=== PATIENT | female | born 1935 | race Caucasian/White ===

== ENCOUNTER 2020-07-24 05:02 | Observation (INO) ==
--- NOTE | 2020-06-27 08:57 | PAT Medication Instructions ---
Medication Instructions Date of Service June 27, 2020 Home Medications cholecalciferol (vitamin D3) [Vitamin D3] 50 mcg PO QAM glucos sul [id number] [Glucosamine Chondroitin] 1 cap PO QAM methylcellulose (laxative) [Citrucel] 500 mg PO QAM omega 3,6,9 combination no.7 1 mg PO QAM turmeric root extract 500 mg PO QAM STOP taking 2 weeks before surgery omega 3,6,9 combination no.7 1 mg PO QAM turmeric root extract 500 mg PO QAM glucos sul [id number]-C-Mn [Glucosamine Chondroitin] 1 cap PO QAM DO NOT take the morning of surgery methylcellulose (laxative) [Citrucel] 500 mg PO QAM cholecalciferol (vitamin D3) [Vitamin D3] 50 mcg PO QAM OTHERWISE NOTHING TO EAT OR DRINK AFTER MIDNIGHT Other Notes If you have any questions please call us at [phone] or [phone] or [phone] or [phone]
--- NOTE | 2020-06-29 08:17 | History & Physical Report ---
Date of Service June 29, 2020 date of surgery: 07-24-20 Procedure: Left total knee replacement Assessment & Plan (1) Arthritis of knee, left: Risks and benefits of procedure discussed in detail today, patient would like to proceed with a left total knee replacement at [facility] as scheduled. will obtain medical clearance from Dr Jesus prior to surgery as well as obtain PATs at [facility]. Will place on ASA 81mg po bid x 1 month post op, f/u 2 weeks post op for routine post-operative care and x-ray, sooner if having any problems. will make arrangements for HHPT at the time of discharge. At this point in time, has failed conservative measures and would like to proceed with surgical intervention. The risks and benefits have been discussed including, but not limited to, risk of infection, nerve injury, stiffness, loss of motion, failure to improve, etc. Reasonable outcomes and options of treatment were discussed. An explanation of appropriate alternatives to the procedure that may be advantageous were discussed and their risks and benefits, as well as the risks and benefits of not proceeding with treatment. I offered to answer any additional inquiries concerning the treatment involved. All the patient's questions were answered. The patient is agreeable, understanding of the treatment plan and alternatives, and wishes to proceed with the treatment plan. History of Present Illness Chief Complaint: left knee pain Primary Care Provider: José Antonio Gaspar Susana is a 84 year old female who complains of left knee pain, presents for pre- op evaluation prior to a left total knee replacement by dr Long at [facility]. she complains of pain, crepitus, decreased range of motion, instability and stiffness in the left knee. she states that the symptoms have been chronic and non-traumatic and the symptoms occur constantly with intermittent worsening. Currently the patient states that the symptoms are moderate-severe. The pain is described as aching, sharp and throbbing. The symptoms occur continuously. The symptoms are aggravated by ascending stairs, daily activities, first steps while awake walking. Prior NSAIDs include IBU and Aleve. she has been treated with previous cortisone injections in the past without much relief. she has had Pt and sometimes uses a knee brace. Allergies Allergy/AdvReac Type Severity Reaction Status Date / Time codeine AdvReac Unknown Dizziness Verified 06/26/20 13:25 Home Medications Home Medications Medication Instructions Recorded Confirmed Type cholecalciferol (vitamin D3) 50 mcg PO QAM 06/26/20 06/26/20 History [Vitamin D3] glucos sul [id number]-C-Mn 1 cap PO QAM 06/26/20 06/26/20 History [Glucosamine Chondroitin] methylcellulose (laxative) 500 mg PO QAM 06/26/20 06/26/20 History [Citrucel] omega 3,6,9 combination no.7 1 mg PO QAM 06/26/20 06/26/20 History turmeric root extract 500 mg PO QAM 06/26/20 06/26/20 History Past Med/Surg History Medical History Arthritis Nocturia more than twice per night Surgical History Cancer MELANOMA LIP-EXCISION History of appendectomy History of colonoscopy History of tonsillectomy History of tooth extraction Family History Brother Family history of diabetes mellitus Father Family history of diabetes mellitus Social History Smoking Status: Never smoker Second Hand Exposure: Yes (FATHER SMOKED); Do You Dip or Chew Tobacco: No; Hx Alcohol Use: Yes Alcohol type: wine Hx Substance Use: No Preferred Language: Argentine Communication Ability: Effective Medical Services Assistant Required: No Beliefs That Will Affect Care: None Current Living Situation: Spouse Other Information That Helps Us Care for You: No Feels Safe at Home: Yes Safety Concerns: Feels Safe At This Time Review of Systems Review of Systems: All systems reviewed & are unremarkable except as noted in HPI & below Constitutional: no fever, no chills and no sweats Respiratory: no cough and no dyspnea Cardiovascular: no chest pain, no dyspnea and no orthopnea Gastrointestinal: no abdominal pain, no nausea and no vomiting Musculoskeletal: as per Subjective / HPI Physical Exam Physical Exam: Ht: 5ft 6in Wt: 56.7kg BP: 132/76 Pulse: 66 Constitutional: WD/WN, vitals as above no acute distress Respiratory: normal respiratory effort, lungs clear to auscultation no respiratory distress, no labored breathing and does not use accessory muscles Cardiovascular: RRR, no murmur, no edema Gastrointestinal (Abdomen): normal bowel sounds, soft, nontender, no hepatosplenomegaly Musculoskeletal: Knee: + knee abnormal to inspection (Left Knee- ), + effusion (+1 effusion), + limited ROM of knee (ROM 0/3/110), + knee ROM with crepitation, + joint line tenderness (medial joint line) and + Altagracia's sign positive; no deformity, no skin erythema, no ecchymosis, no valgus laxity, no varus laxity, anterior drawer test negative, Tresa's sign negative and pivot shift test negative Results & Data Results & Data ([facility]) Diagnostic Findings Left Knee X-ray: left knee series confirm advanced degenerative changes to the left knee, g reatest medial compartments and patellofemoral joint, showing joint space narrowing, osteophyte formation and subchondral sclerosis. no acute bony pathology noted.
--- NOTE | 2020-06-29 12:05 | Anesthesiology Consultation ---
Date of Service June 29, 2020 Assessment & Plan (1) Encounter for pre-operative examination: Chart Review Chart Review: Pending: Refer to Additional Notes / Consult section (pending 07/04 PCP clearance ) and Patient seen in Pre Admission Testing Awaiting surgeon ordered PCP clearance scheduled 07/04/20 Per PAT appt on 06/29/20, pt resides in [facility]. Traveled to [place] June 01- . Did fly- wears mask, uses good hand hygiene and socially distances. Did self quarantine x 14 days. Pt scheduled for preop Covid testing 07/19/20. Educated on importance of self quarantining, social distancing and wearing mask in public both for the patient and household contacts. History Surgery Operation Date: 07/24/20 14:15 Proposed Procedures p Left Total Knee Arthroplasty - William Long DO Height/Weight Height: 5 ft 6 in Weight: 57.6 kg Allergies Allergy/AdvReac Type Severity Reaction Status Date / Time codeine AdvReac Unknown Dizziness Verified 06/26/20 13:25 Medications Home Medications Medication Instructions Recorded Confirmed Last Taken cholecalciferol (vitamin D3) 50 mcg PO QAM 06/26/20 06/26/20 Unknown [Vitamin D3] glucos sul [id number]-ojaap-C-Mn 1 cap PO QAM 06/26/20 06/26/20 Unknown [Glucosamine Chondroitin] methylcellulose (laxative) 500 mg PO QAM 06/26/20 06/26/20 Unknown [Citrucel] omega 3,6,9 combination no.7 1 mg PO QAM 06/26/20 06/26/20 Unknown turmeric root extract 500 mg PO QAM 06/26/20 06/26/20 Unknown Past Medical History Medical History Arthritis Nocturia more than twice per night Exercise / Class Metabolic Activity III < 4 Walking/Shop/Light housework (no chest pain or SOB with flat surface ambulation ) Past Family History Family History Brother Family history of diabetes mellitus Father Family history of diabetes mellitus Past Surgical History Surgical History Cancer MELANOMA LIP-EXCISION History of appendectomy History of colonoscopy History of tonsillectomy History of tooth extraction Past Anesthesia History No Hx of Anesthesia Complications (with exception to PONV ) and No Family Hx of Anesthesia Complications (none known ) History of PONV History of PONV (does usually get anti nausea meds ) and Hx of Motion Sickness Social History Smoking Status: Never smoker Do You Dip or Chew Tobacco: No Hx Alcohol Use: Yes Alcohol type: wine alcohol intake frequency: a few times a week Hx Substance Use: No Review of Systems Patient denies chest pain, shortness of breath, dyspnea on exertion, reflux, cough, wheezing, palpitations. No hx of seizures, stroke, MO, apnea/snoring. 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 Neck + limited neck extension (minimal ) Respiratory normal respiratory effort; no respiratory distress Auscultation: lungs clear to auscultation bilaterally; no wheezes Cardiovascular Rate/Rhythm: regular rate and regular rhythm Heart Sounds: no murmur Vessels: no carotid bruit Musculoskeletal Spine: + pain with cervical ROM (minimal ) Neurologic moves all extremities Psychiatric Orientation: alert Testing Laboratory Results 06/29/20 12:22 06/29/20 12: PT 11.2 Seconds (9.0-12.0) 06/29/20 12:22 INR 1.1 (0.9-1.1) 06/29/20 12:22 APTT 31.0 Seconds (21.0-31.0) 06/29/20 12:22 Hemoglobin A1c 5.8 % (4.5-5.6) H 06/29/20 12:22 Urine Color Yellow 06/29/20 12:22 Urine Appearance Clear (Clear) 06/29/20 12:22 Urine pH 7.0 (4.5-7.5) 06/29/20 12:22 Ur Specific [place] 1.020 (1.000-1.030) 06/29/20 12:22 Urine Protein Negative (Negative) 06/29/20 12:22 Urine Glucose (UA) Negative (Negative) 06/29/20 12:22 Urine Ketones Negative (Negative) 06/29/20 12:22 Urine Nitrite Negative (Negative) 06/29/20 12:22 Ur Leukocyte Esterase Negative (Negative) 06/29/20 12:22 Urine RBC 5-10 /hpf (0-4) H 06/29/20 12:22 Urine WBC 0-5 /hpf (0-5) 06/29/20 12:22 Ur Epithelial Cells 0-5 /lpf (0-5) 06/29/20 12:22 Blood Type O Negative 06/29/20 12:22 Antibody Screen NEGATIVE 06/29/20 12:22 Electrocardiogram Date: 06/29/20 Findings: + NSR @ (67) Incomplete RBBB. Chest X-Ray Date: 06/29/20 Findings: + NAD Nonspecific interstitial thickening is likely chronic.
--- NOTE | 2020-06-29 12:57 | XRay Report ---
TWO VIEW CHEST CLINICAL HISTORY: Preoperative examination. FINDINGS: PA and lateral chest radiographs are obtained. No prior studies are available for compariso n at the time of dictation. The heart is top normal for projection noting mild atherosclerotic calci fication of the thoracic aorta. The mediastinal contour is within normal limits. Nonspecific intersti tial thickening is likely chronic. No airspace consolidation or pleural effusion is identified. There is no pneumothorax. The skeletal structures are osteopenic. The bony thorax appears intact. IMPRESSION: No active disease in the chest. ACT 112: Negative or not required by law. Electronically signed by: Horacio Hurst M.D. 06/29/2020 12:56 PM
[2020-06-29 13:20] LABS: Basophils # (auto) 0.02 K/uL (0-0.2); Basophils % (auto) 0.5 %; Eosinophils # (auto) 0.01 K/uL (0-0.5); Eosinophils % (auto) 0.2 %; Hematocrit (blood only) 35.7 % (37-47); Hemoglobin 11.7 g/dL (12.0-16.0); Lymphocytes # (auto) 1.89 K/uL (1.2-3.4); Lymphocytes % (auto) 42.8 %; Mean Corpuscular Hemoglobin 30.2 pg (25-34); Mean Corpuscular Hgb Conc 32.8 g/dL (32-36); Mean Platelet Volume 11.3 fL (7.4-10.4); Monocytes # (auto) 0.32 K/uL (0.11-0.59); Monocytes % (auto) 7.2 %; Neutrophils # (auto) 2.18 K/uL (1.4-6.5); Neutrophils % (auto) 49.3 %; Platelet Count 199 K/uL (130-400); RDW Coefficient of Variation 12.9 % (11.5-14.5); RDW Standard Deviation 43.5 fL (36.4-46.3); Red Blood Count 3.88 M/uL (4.2-5.4); White Blood Count 4.42 K/uL (4.8-10.8)
[2020-06-29 13:32] LABS: Albumin Level 3.6 gm/dl (3.4-5.0); BUN Creatinine Ratio 25.7 (10-20); Creatinine Clr Calc Pharmacy 49.3 ml/min; Est GFR (African American) 79.6; Est GFR (Non-African American) 68.7; Estimated Average Glucose 120 mg/dl; Hemoglobin A1C 5.8 % (4.5-5.6); Potassium 4.2 mmol/L (3.5-5.1)
[2020-06-29 13:35] LABS: Appearance Urine Clear (Clear); Bilirubin Urine Negative (Negative); Blood Urine Trace (Negative); Color Urine Yellow; Glucose Urine UA Negative (Negative); Ketones Urine Negative (Negative); Leukocyte Esterase Urine Negative (Negative); Nitrite Urine Negative (Negative); Protein Urine Negative (Negative); Urobilinogen Urine Negative (Negative)
[2020-06-29 13:37] LABS: INR 1.1 (0.9-1.1); Partial Thromboplastin Ratio 1.1; Prothrombin Time 11.2 Seconds (9.0-12.0)
[2020-06-29 14:05] LABS: Bacteria Urine Negative (Negative); Epithelial Cell Urine 0-5 /lpf (0-5); WBC Urine 0-5 /hpf (0-5)
--- NOTE | 2020-06-30 07:10 | Electrocardiogram Report ---
Test Reason : Blood Pressure : / mmHG Vent. Rate : 067 BPM Atrial Rate : 067 BPM P-R Int : 170 ms QRS Dur : 098 ms QT Int : 434 ms P-R-T Axes : 088 066 084 degrees QTc Int : 458 ms Normal sinus rhythm Incomplete right bundle branch block Borderline ECG No previous ECGs available Confirmed by Adrián Guerrero ([id number]) on 06/30/2020 7:10:02 AM Referred By: William Long Confirmed By:Adrián Guerrero
[2020-07-24] MEDS ORDERED: ACETAMINOPHEN 500 MG TAB PO SCH (06:00)
[2020-07-24] MEDS ORDERED: LR 500ML BOLUS, THEN 15ML/HR IV SCH (06:00)
[2020-07-24] MEDS ORDERED: TRANEXAMIC ACID 1,000 MG **IV Pre-op IV SCH (06:00)
[2020-07-24] MEDS ORDERED: TRANEXAMIC ACID 1,000 MG **IV Intra-op IV SCH (06:00)
[2020-07-24] MEDS ORDERED: GABAPENTIN 300 MG CAP PO SCH (06:00)
[2020-07-24] MEDS ORDERED: dexAMETHasone 4 MG TAB PO SCH (06:00)
[2020-07-24] MEDS ORDERED: ROPIVACAINE 0.5% HCL/PF 150 MG, BUPIVACAINE 0.5% MPF 30 ML, EPINEPHrine 30MG/30ML (OR U... INSTIL SCH (06:00)
[2020-07-24] MEDS ORDERED: CeleBREX 200 MG CAP PO SCH (06:00)
[2020-07-24] MEDS ORDERED: CEFAZOLIN 1000MG 1,000 MG/7.5 ML SYR IV SCH (06:00)
[2020-07-24] MEDS ORDERED: METOCLOPRAMIDE HCL 10 MG TABLET PO SCH (06:00)
[2020-07-24] MEDS ORDERED: FAMOTIDINE 20 MG TAB PO SCH (06:00)
[2020-07-24] MEDS ORDERED: EPINEPHrine INJ 1 MG/ML AMP ONE (06:30)
[2020-07-24] MEDS ORDERED: BUPIVACAINE 0.5 % 5 MG/1 ML PF 10ML VIAL ONE (06:30)
[2020-07-24] MEDS ORDERED: ROPIVACAINE 0.5% 5 MG/ML 30 ML VIAL ONE (06:30)
[2020-07-24] MEDS ORDERED: BACITRACIN INJ 50,000 UNIT VIAL ONE (06:54)
[2020-07-24] MEDS ORDERED: ORTHO JOINT ANESTHETIC ONE (06:54)
[2020-07-24] MEDS ORDERED: MIDAZOLAM HCL 1 MG/ML 2ML VIAL ONE (06:56)
[2020-07-24] MEDS ORDERED: LIDOCAINE HCL 2% 2 ML VIAL/AMP(20MG/ML) INFIL ONE (06:56)
[2020-07-24] MEDS ORDERED: PROPOFOL IV EMULSION 10 MG/ML 20 ML VIAL IV ONE (06:56)
[2020-07-24] MEDS ORDERED: fentaNYL citrate 100 MCG/2 ML VIAL ONE (07:01)
--- NOTE | 2020-07-24 07:17 | History & Physical Bridge Note ---
Date of Service July 24, 2020 History & Physical Bridge Note I have examined the patient, reviewed the History & Physical and in the interval since the performance of the History & Physical I have noted the following changes of clinical significance: no changes noted
[2020-07-24] MEDS ORDERED: NALOXONE HCL 0.4 MG/1 ML VIAL/CARP IV PRN ×2 (08:02→10:07)
[2020-07-24] MEDS ORDERED: ePHEDrine sulfate 50 MG/ML AMP IV PRN (08:02)
[2020-07-24] MEDS ORDERED: PROMETHAZINE HCL 12.5 MG in SODIUM CHLORIDE 0.9% 50 ML IV PRN (08:02)
[2020-07-24] MEDS ORDERED: ATROPINE SULFATE 0.1 MG/ML 10ML SYR IV PRN (08:02)
[2020-07-24] MEDS ORDERED: ONDANSETRON INJ 2 MG/ML 2 ML VIAL IV PRN ×2 (08:02→10:07)
[2020-07-24] MEDS ORDERED: FLUMAZENIL 0.1 MG/1 ML 10 ML VIAL IV PRN (08:02)
--- NOTE | 2020-07-24 08:21 | Operative Report ---
Post Operative Report Pre & Post Diagnosis Operation Date: 07/24/20 07:15 Pre-Op Diagnosis: Unilateral Primary Osteoarthritis, Left Knee Post-Op Diagnosis: Unilateral Primary Osteoarthritis, Left Knee I identified the patient and participated in the time-out.: Yes Procedure Operation Date: 07/24/20 07:15 Actual Procedures p Left Total Knee Arthroplasty(Left) utilizing [employer] 2 patient matched total knee arthroplasty size 4 femur 3 tibia 13 polyethylene 32 oval patella- William Long DO Surgeon William Long DO Transport Rn LEVON Gonzalez Estimated Blood Loss 5 Findings Consistent with Post-Op Diagnosis Patient presents with severe end-stage tricompartmental degenerative joint disease left knee varus alignment subchondral sclerosis marginal osteophytes eburnated [id number] moderate to large effusion Specimens Bone and cartilage Drains Medium bore Hemovac Anesthesia Type MAC Spinal Regional Complications none Disposition Accompanied Patient To Recovery: No Disposition: Recovery Room Indications Patient presents with severe end-stage DJD is failed attempted conservative management clinic physical therapy anti-inflammatories relative rest activity modifications corticosteroid injections Visco supplementation the above intraoperative findings noted time surgery. Description of Procedure After proper prepping and draping of the left lower extremity anterior midline incision was made over the region of the extensor extensor mechanism after meticulous hemostasis was obtained and maintained in subcutaneous tissues a medial parapatellar incision was made The patella was subluxed lateralward the medial lateral gutter were cleaned from any hypertrophic synovitis and scar tissue of the distal femoral block was placed and the distal femoral osteotomy cut was made subsequently the chamfers anterior and posterior osteotomy cuts were made utilizing the 4-in-1 block the tibia was subsequently subluxed anteriorward medial and ateral meniscal remnants were excised in their entirety remnants of the anterior and posterior cruciate ligaments were excised in their entirety excellent exposure of the proximal tibia was obtained the tibial osteotomy guide was placed on the proximal tibial osteotomy cut was made once again the knee was irrigated with copious amounts of sterile saline solution the patella was subsequently everted lateralward thickened scar tissue around the patella was removed the patella was subsequently cut utilizing a freehand technique and was drilled prepared for final preparation and placement of patella socially flexion-extension gaps were checked and the equal and symmetric trials were placed to the appropriate femoral and tibial trials with poly-spacer being placed for equal flexion and extension gaps and full range of motion including extension to 0 and flexion to 140 the trial components after having been taken to recovery range of motion was subsequently removed meticulous hemostasis was obtained and maintained subsequently a knee block injection of joint cocktail including ropivacaine 0.5% 150 mg. Bupivacaine 0.5% epinephrine 1-200,030 mL's toradol 30 mg dexamethasone 4 mg ketamine 10 mg clonidine 100 micrograms normal saline solution 30 mg was infiltrated into the soft tissues of the posterior knee medial lateral gutters and periosteal synovium special attention was paid to protect neurovascular structures at all times subsequently trial components having been removed the knee was irrigated with sterile saline solution. debris was removed the proximal tibia was subsequently prepared and was made ready for the placement of the tibial component tibial component was also cemented and tamped into position the femoral component was subsequently placed and cemented in the position the patellar component was subsequently cemented in position because hemostasis once again obtained and maintained wound having been thoroughly irrigated with debridement and debridement lavage was performed as well as a medial parapatellar incision closed with #1 Vicryl in interrupted fashion subcutaneous was closed with #2 Vicryl skin was closed with skin clips. PA-C was necessary for prepping and drapping as well as wound closure of deep fascia Sub cutaneous tissue and skin and was necessary for the case. A sterile compressive dressing was placed patient was taken to recovery in stable condition of report dictated by Ethan I attest to the content of the Intraoperative Record and any orders documented therein. Any exceptions are noted below. I attest to the content of the Intraoperative Record and any orders documented therein. Any exceptions are noted below.
--- NOTE | 2020-07-24 09:26 | XRay Report ---
LEFT KNEE 2 VIEWS History: Left total knee arthroplasty. Degenerative arthritis. Postop. FINDINGS: The patient is status post a left total knee arthroplasty. The hardware is intact. No fract ure or dislocation. Surgical drains are in place. IMPRESSION: Left total knee arthroplasty. No evidence for hardware complication. ACT 112: Negative or not required by law. Electronically signed by: Alvaerz Wright M.D. 07/24/2020 9:24 AM
--- NOTE | 2020-07-24 09:36 | Anesthesiology Progress Note ---
Date of Service July 24, 2020 Anesthesia Post Procedure Vital Signs Vital Signs: Temp Pulse Resp BP Pulse Ox 07/24/20 09:25 69 12 131/54 L 100 07/24/20 09:15 70 12 134/55 L 100 07/24/20 09:05 76 18 133/53 L 100 07/24/20 08:59 36.6 C 76 14 143/55 H 100 07/24/20 06:22 68 20 146/60 H 100 07/24/20 05:21 36.5 C 71 16 185/71 H 100 Pain Intensity Left Knee: Pain Intensity: 2 Transfer of Care Handoff Completed per policy Notes Mental Status: alert / awake / arousable and participated in evaluation Patient Amnestic to Procedure: Yes Nausea / Vomiting: adequately controlled Pain: adequately controlled Airway Patency, RR, SpO2: stable & adequate BP & HR: stable & adequate Hydration State: stable & adequate Neuraxial Anesthesia: was administered and sensory block is resolving Anesthetic Complications: no major complications apparent
[2020-07-24] MEDS ORDERED: MAGNESIUM HYDROXIDE SUSP 30 ML UDC PO PRN (10:07)
[2020-07-24] MEDS ORDERED: bisacodyL 10 MG SUPP PR PRN (10:07)
[2020-07-24] MEDS ORDERED: HYDROmorphone INJ 1 MG/ML SYRINGE IV PRN (10:07)
[2020-07-24] MEDS ORDERED: METOCLOPRAMIDE HCL INJ 5 MG/ML 2 ML VIAL IV PRN (10:07)
[2020-07-24] MEDS: SODIUM CHLORIDE 0.9% 1000ML 1,000 ML IV SCH ×2 (10:24→20:21)
[2020-07-24] MEDS: KETOROLAC TROMETHAMINE 15 MG/ML VIAL IV SCH ×3 (10:51→22:01)
[2020-07-24] MEDS: CHOLECALCIFEROL 1,000 UNITS 25 MCG TAB PO SCH (10:51)
[2020-07-24] MEDS: METHYLCELLULOSE POWDER 454 GM JAR PO SCH (11:01)
[2020-07-24] MEDS: CEFAZOLIN 1000MG 1,000 MG/7.5 ML SYR IV SCH ×2 (14:26→22:00)
[2020-07-24] MEDS: SENNA 8.6 MG TAB PO SCH (20:22)
[2020-07-24] MEDS: DOCUSATE SODIUM 100 MG CAP PO SCH (20:22)
[2020-07-24] MEDS: ASPIRIN 81 MG ECTAB PO SCH (20:22)
[2020-07-25] MEDS: KETOROLAC TROMETHAMINE 15 MG/ML VIAL IV SCH (05:01)
[2020-07-25 05:48] LABS: Hematocrit (blood only) 30.8 % (37-47); Hemoglobin 10.4 g/dL (12.0-16.0); Mean Corpuscular Hemoglobin 30.5 pg (25-34); Mean Corpuscular Hgb Conc 33.8 g/dL (32-36); Mean Corpuscular Volume 90.3 fL (80-100); Platelet Count 181 K/uL (130-400); RDW Coefficient of Variation 12.9 % (11.5-14.5); RDW Standard Deviation 42.7 fL (36.4-46.3); Red Blood Count 3.41 M/uL (4.2-5.4)
[2020-07-25 06:19] LABS: Calcium 8.4 mg/dl (8.5-10.1); Creatinine Clr Calc Pharmacy 51.7 ml/min; Est GFR (African American) 83.3; Est GFR (Non-African American) 71.9; Potassium 4.4 mmol/L (3.5-5.1)
--- NOTE | 2020-07-25 08:29 | Orthopedic Progress Note ---
Date of Service July 25, 2020 Assessment & Plan (1) Arthritis of knee, left: Postop day 1 status post left total knee arthroplasty. PT/OT protocols. Weightbearing as tolerated. DVT prophylaxis-aspirin p.o. twice daily, SCDs Pain management as written. DC planning-patient is planning for outpatient PT at [facility]. Admission and Anticipated Discharge Date Admission Date: July 24, 2020 Subjective Postop day 1 patient sitting up in a chair at the bedside eating her breakfast. Pain is controlled. She states she has some mild pain around her thigh where the tourniquet was. No other complaints. Denies shortness of breath, chest pain, lightheadedness. Physical Exam Physical Exam: Dressings are clean, dry, and intact. Calves are soft nontender. Neurovascular is intact. Toes are mobile. She has good dorsiflexion and plantarflexion of the left foot. Hemovac drainage was 125 mL's from the previous shift. Results & Data ([facility]) Vital Signs (Past 12 Hours) Vital Signs Temp Pulse Resp BP Pulse Ox 07/25/20 07:32 36.4 C L 74 16 144/65 H 97 07/25/20 03:05 36.4 C L 69 16 129/66 93 07/24/20 22:48 36.4 C L 66 18 126/65 96 Laboratory Results Laboratory Results WBC 11.40 K/uL (4.8-10.8) H 07/25/20 05:20 RBC 3.41 M/uL (4.2-5.4) L 07/25/20 05:20 Hgb 10.4 g/dL (12.0-16.0) L 07/25/20 05:20 Hct 30.8 % (37-47) L 07/25/20 05:20 MCV 90.3 fL (80-100) 07/25/20 05:20 MCH 30.5 pg (25-34) 07/25/20 05:20 MCHC 33.8 g/dL (32-36) 07/25/20 05:20 RDW Std Deviation 42.7 fL (36.4-46.3) 07/25/20 05:20 RDW Coeff of Eunice 12.9 % (11.5-14.5) 07/25/20 05:20 Plt Count 181 K/uL (130-400) 07/25/20 05:20 MPV 11.0 fL (7.4-10.4) H 07/25/20 05:20 Immature Gran % (Auto) 0.0 % 06/29/20 12: Neut % (Auto) 49.3 % 06/29/20 12: Lymph % (Auto) 42.8 % 06/29/20 12:22 [place] % (Auto) 7.2 % 06/29/20 12: Eos % (Auto) 0.2 % 06/29/20 12:22 Baso % (Auto) 0.5 % 06/29/20 12: Neut # (Auto) 2.18 K/uL (1.4-6.5) 06/29/20 12: Lymph # (Auto) 1.89 K/uL (1.2-3.4) 06/29/20 12:22 [place] # (Auto) 0.32 K/uL (0.11-0.59) 06/29/20 12: Eos # (Auto) 0.01 K/uL (0-0.5) 06/29/20 12: Baso # (Auto) 0.02 K/uL (0-0.2) 06/29/20 12: Immature Gran # (Auto) 0.00 K/uL (0.00-0.02) 06/29/20 12: PT 11.2 Seconds (9.0-12.0) 06/29/20 12:22 INR 1.1 (0.9-1.1) 06/29/20 12:22 APTT 31.0 Seconds (21.0-31.0) 06/29/20 12:22 PTT Ratio 1.1 06/29/20 12:22 Sodium 142 mmol/L (136-145) 07/25/20 05:20 Potassium 4.4 mmol/L (3.5-5.1) 07/25/20 05:20 Chloride 111 mmol/L (98-107) H 07/25/20 05:20 Carbon Dioxide 25 mmol/L (21-32) 07/25/20 05:20 Anion Gap 6.0 (3-11) 07/25/20 05:20 BUN 24 mg/dl (7-18) H 09/09/20 05:20 Creatinine 0.77 mg/dl (0.6-1.2) 07/25/20 05:20 Est Cr Clr Drug Dosing 51.7 ml/min 07/25/20 05:20 Est GFR ( Amer) 83.3 07/25/20 05:20 Est GFR (Non-Af Amer) 71.9 07/25/20 05:20 BUN/Creatinine Ratio 31.0 (10-20) H 07/25/20 05:20 Glucose 121 mg/dl (70-99) H 07/25/20 05:20 Estimat Average Glucose 120 mg/dl 06/29/20 12:22 Hemoglobin A1c 5.8 % (4.5-5.6) H 06/29/20 12:22 Calcium 8.4 mg/dl (8.5-10.1) L 07/25/20 05:20 Albumin 3.6 gm/dl (3.4-5.0) 06/29/20 12:22 Urine Color Yellow 06/29/20 12:22 Urine Appearance Clear (Clear) 06/29/20 12:22 Urine pH 7.0 (4.5-7.5) 06/29/20 12:22 Ur Specific [place] 1.020 (1.000-1.030) 06/29/20 12:22 Urine Protein Negative (Negative) 06/29/20 12:22 Urine Glucose (UA) Negative (Negative) 06/29/20 12:22 Urine Ketones Negative (Negative) 06/29/20 12:22 Urine Blood Trace (Negative) H 06/29/20 12:22 Urine Nitrite Negative (Negative) 06/29/20 12:22 Urine Bilirubin Negative (Negative) 06/29/20 12:22 Urine Urobilinogen Negative (Negative) 06/29/20 12:22 Ur Leukocyte Esterase Negative (Negative) 06/29/20 12:22 Urine RBC 5-10 /hpf (0-4) H 06/29/20 12:22 Urine WBC 0-5 /hpf (0-5) 06/29/20 12:22 Ur Epithelial Cells 0-5 /lpf (0-5) 06/29/20 12:22 Urine Bacteria Negative (Negative) 06/29/20 12:22 Blood Type O Negative 06/29/20 12:22 Antibody Screen NEGATIVE 06/29/20 12:22
[2020-07-25] MEDS: ASPIRIN 81 MG ECTAB PO SCH ×2 (09:59→21:31)
[2020-07-25] MEDS: MULTIVITAMIN TAB PO SCH (09:59)
[2020-07-25] MEDS: METHYLCELLULOSE POWDER 454 GM JAR PO SCH (09:59)
[2020-07-25] MEDS: CHOLECALCIFEROL 1,000 UNITS 25 MCG TAB PO SCH (09:59)
[2020-07-25] MEDS: DOCUSATE SODIUM 100 MG CAP PO SCH ×2 (09:59→21:32)
[2020-07-25] MEDS: CeleBREX 200 MG CAP PO SCH ×2 (10:00→21:31)
[2020-07-25] MEDS: HYDROCODONE/ACETAMOPHEN 5/325MG TAB PO PRN (18:36)
[2020-07-25] MEDS: SENNA 8.6 MG TAB PO SCH (21:32)
--- NOTE | 2020-07-26 06:56 | Orthopedic Progress Note ---
Date of Service July 26, 2020 Assessment & Plan (1) Arthritis of knee, left: Postop day 2 status post left total knee arthroplasty. PT/OT protocols. Weightbearing as tolerated. DVT prophylaxis-aspirin p.o. twice daily, SCDs Pain management as written. DC planning- plan for d/c with outpatient PT at [facility]. Admission and Anticipated Discharge Date Admission Date: July 24, 2020 Subjective pod #2 denies CP/SOB Denies Fever/Chills Physical Exam Physical Exam: Vital Signs Temp 36.6 C 07/26/20 06:38 Pulse 78 07/26/20 06:38 Resp 16 07/26/20 06:38 BP 153/73 H 07/26/20 06:38 Pulse Ox 98 07/26/20 06:38 Intake & Output 07/25/20 07/25/20 07/26/20 06:59 18:59 06:59 Intake Total 2416.667 / 4111.66 7 410 / 410 Output Total 1174 / 2354 200 / 350 150 / 350 Balance 1242.667 / 1757.66 7 -200 / 60 260 / 60 Intake: IV 1866.667 / 2766.66 7 Nss 1000ML 1,0 00 ml @ 100 mls/ 1866.667 / 1866.66 7 hr IV .Q10H SC H Rx#:[id number] Oral 550 / 945 410 / 410 Output: Urine 849 / 1979 Drain Output 325 / 370 200 / 350 150 / 350 Left Knee Hemo vac 325 / 370 200 / 350 150 / 350 Other: # Unmeasured Voi ds 1 1 Constitutional: WD/WN, vitals as above no acute distress Musculoskeletal: left knee: NVDI, calf SNT, negative chris sign. DP palpable, able to wiggle toes/ankle movement without difficulty. Prineo dressing clean dry and intact. expected post-operative bruising noted. Results & Data ([facility]) Vital Signs (Past 12 Hours) Vital Signs Temp Pulse Resp BP Pulse Ox 07/26/20 06:38 36.6 C 78 16 153/73 H 98 07/25/20 23:16 36.5 C 69 16 145/77 H 98
[2020-07-26] MEDS: DOCUSATE SODIUM 100 MG CAP PO SCH (07:24)
[2020-07-26] MEDS: ASPIRIN 81 MG ECTAB PO SCH (07:24)
[2020-07-26] MEDS: HYDROCODONE/ACETAMOPHEN 5/325MG TAB PO PRN (07:25)
[2020-07-26] MEDS: CeleBREX 200 MG CAP PO SCH (07:26)
[2020-07-26] MEDS: CHOLECALCIFEROL 1,000 UNITS 25 MCG TAB PO SCH (07:26)
[2020-07-26] MEDS: MULTIVITAMIN TAB PO SCH (07:26)
[2020-07-26] MEDS: METHYLCELLULOSE POWDER 454 GM JAR PO SCH (07:26)
--- NOTE | 2020-07-26 08:14 | Discharge Summary ---
Date of Service date of discharge: July 26, 2020 date of admission: 07-24-20 Admission HPI Per Admitting Provider Susana is a 84 year old female who complains of left knee pain, presents for pre- op evaluation prior to a left total knee replacement by dr Long at [facility]. she complains of pain, crepitus, decreased range of motion, instability and stiffness in the left knee. she states that the symptoms have been chronic and non-traumatic and the symptoms occur constantly with intermittent worsening. Currently the patient states that the symptoms are moderate-severe. The pain is described as aching, sharp and throbbing. The symptoms occur continuously. The symptoms are aggravated by ascending stairs, daily activities, first steps while awake walking. Prior NSAIDs include IBU and Aleve. she has been treated with previous cortisone injections in the past without much relief. she has had Pt and sometimes uses a knee brace. Principal Diagnosis left knee arthritis Discharge Exam Vital Signs Temp 36.6 C 07/26/20 06:38 Pulse 78 07/26/20 06:38 Resp 16 07/26/20 06:38 BP 153/73 H 07/26/20 06:38 Pulse Ox 98 07/26/20 06:38 Intake & Output 07/25/20 07/26/20 07/26/20 18:59 06:59 18:59 Intake Total 410 / 410 Output Total 200 / 350 150 / 350 Balance -200 / 60 260 / 60 Intake: Oral 410 / 410 Output: Drain Output 200 / 350 150 / 350 Left Knee Hemovac 200 / 350 150 / 350 Other: # Unmeasured Voids 1 1 Constitutional WD/WN, vitals as above no acute distress Musculoskeletal left knee: NVDI, calf SNT, negative chris sign. DP palpable, able to wiggle toes/ankle movement without difficulty. Prineo dressing clean dry and intact. expected post-operative bruising noted. Discharge Data Allergies Allergy/AdvReac Type Severity Reaction Status Date / Time codeine AdvReac Unknown Dizziness Verified 07/24/20 05:42 Consultations 07/24/20 10:07 Consult Case Management - Discharge Planning Routine Procedures Performed Operation Date: 07/24/20 07:15 Actual Procedures p Left Total Knee Arthroplasty(Left) - William Long DO Ordered Studies 07/24/20 05:00 US - OR guided needle placemen Routine Hospital Course (1) Arthritis of knee, left: Postop day 2 status post left total knee arthroplasty. PT/OT protocols. Weightbearing as tolerated. DVT prophylaxis-aspirin p.o. twice daily, SCDs Pain management as written. DC planning- plan for d/c with outpatient PT at [facility]. Laboratory Results WBC 11.40 K/uL (4.8-10.8) H 07/25/20 05:20 RBC 3.41 M/uL (4.2-5.4) L 07/25/20 05:20 Hgb 10.4 g/dL (12.0-16.0) L 07/25/20 05:20 Hct 30.8 % (37-47) L 07/25/20 05:20 MCV 90.3 fL (80-100) 07/25/20 05:20 MCH 30.5 pg (25-34) 07/25/20 05:20 MCHC 33.8 g/dL (32-36) 07/25/20 05:20 RDW Std Deviation 42.7 fL (36.4-46.3) 07/25/20 05:20 RDW Coeff of Eunice 12.9 % (11.5-14.5) 07/25/20 05:20 Plt Count 181 K/uL (130-400) 07/25/20 05:20 MPV 11.0 fL (7.4-10.4) H 07/25/20 05:20 Immature Gran % (Auto) 0.0 % 06/29/20 12:22 Neut % (Auto) 49.3 % 06/29/20 12:22 Lymph % (Auto) 42.8 % 06/29/20 12:22 [place] % (Auto) 7.2 % 06/29/20 12:22 Eos % (Auto) 0.2 % 06/29/20 12:22 Baso % (Auto) 0.5 % 06/29/20 12:22 Neut # (Auto) 2.18 K/uL (1.4-6.5) 06/29/20 12:22 Lymph # (Auto) 1.89 K/uL (1.2-3.4) 06/29/20 12:22 [place] # (Auto) 0.32 K/uL (0.11-0.59) 06/29/20 12:22 Eos # (Auto) 0.01 K/uL (0-0.5) 06/29/20 12:22 Baso # (Auto) 0.02 K/uL (0-0.2) 06/29/20 12:22 Immature Gran # (Auto) 0.00 K/uL (0.00-0.02) 06/29/20 12:22 PT 11.2 Seconds (9.0-12.0) 06/29/20 12: INR 1.1 (0.9-1.1) 06/29/20 12:22 APTT 31.0 Seconds (21.0-31.0) 06/29/20 12: PTT Ratio 1.1 06/29/20 12:22 Sodium 142 mmol/L (136-145) 07/25/20 05:20 Potassium 4.4 mmol/L (3.5-5.1) 07/25/20 05:20 Chloride 111 mmol/L (98-107) H 07/25/20 05:20 Carbon Dioxide 25 mmol/L (21-32) 07/25/20 05:20 Anion Gap 6.0 (3-11) 07/25/20 05:20 BUN 24 mg/dl (7-18) H 07/25/20 05:20 Creatinine 0.77 mg/dl (0.6-1.2) 07/25/20 05:20 Est Cr Clr Drug Dosing 51.7 ml/min 07/25/20 05:20 Est GFR ( Amer) 83.3 07/25/20 05:20 Est GFR (Non-Af Amer) 71.9 07/25/20 05:20 BUN/Creatinine Ratio 31.0 (10-20) H 07/25/20 05:20 Glucose 121 mg/dl (70-99) H 07/25/20 05:20 Estimat Average Glucose 120 mg/dl 06/29/20 12:22 Hemoglobin A1c 5.8 % (4.5-5.6) H 06/29/20 12:22 Calcium 8.4 mg/dl (8.5-10.1) L 07/25/20 05:20 Albumin 3.6 gm/dl (3.4-5.0) 06/29/20 12:22 Urine Color Yellow 06/29/20 12:22 Urine Appearance Clear (Clear) 06/29/20 12:22 Urine pH 7.0 (4.5-7.5) 06/29/20 12:22 Ur Specific [employer] 1.020 (1.000-1.030) 06/29/20 12:22 Urine Protein Negative (Negative) 06/29/20 12:22 Urine Glucose (UA) Negative (Negative) 06/29/20 12:22 Urine Ketones Negative (Negative) 06/29/20 12:22 Urine Blood Trace (Negative) H 06/29/20 12:22 Urine Nitrite Negative (Negative) 06/29/20 12:22 Urine Bilirubin Negative (Negative) 06/29/20 12:22 Urine Urobilinogen Negative (Negative) 06/29/20 12:22 Ur Leukocyte Esterase Negative (Negative) 06/29/20 12:22 Urine RBC 5-10 /hpf (0-4) H 06/29/20 12:22 Urine WBC 0-5 /hpf (0-5) 06/29/20 12:22 Ur Epithelial Cells 0-5 /lpf (0-5) 06/29/20 12:22 Urine Bacteria Negative (Negative) 06/29/20 12:22 Blood Type O Negative 06/29/20 12:22 Antibody Screen NEGATIVE 06/29/20 12:22 Total Time Total Time Spent Total Time Spent (In Minutes): 20 Total Time Includes: Examination of the Patient, Discharge Planning and Medication Reconciliation Discharge Plan Discharge Items Patient Disposition: Home - Self-Care Reason For Visit: Unilateral Primary Osteoarthritis, Left Knee Discharge Diagnosis: left total knee replacement Condition on Discharge: Good Activity: Per Instructions section Lifting: Wait until after follow-up appointment Weightbearing Comment: wbat with walker Non-emergency contact: Surgeon Call non-emergency contact if: you have any medication questions, your pain is not controlled, your temperature is above 101, your wound has increased redness, your wound has increased drainage and your wound pain has increased Follow-up/Referrals: José Antonio Gaspar M.D. [Primary Care Provider] - Diet: Regular Addtl Attending Provider Instructions: ACTIVITY RECOMMENDATIONS: SELF CARE INSTRUCTIONS AFTER TOTAL KNEE REPLACEMENT A. You may need to continue a physical therapy program after discharge from the hospital. There are several options available to you. Your doctor will assist you in selecting the best one for you. 1. An out-patient facility 2 to 3 times a week for therapy or home therapy. 2. Continue working on all exercises taught to you in the hospital. Your goals should be to increase bending of your knee to 90 degrees and beyond and to fully straighten your knee. B. You may progress at your own pace from walking with a walker or crutches to a cane; then to no assistive devices. C. Make walking a part of your daily routine. Be up as much as comfortable with rest periods throughout the day. Rest with leg elevation is very important. Use the ice wrap frequently for the first 3-4 weeks. D. There are no restrictions on activities. You may ride in a car, shop, participate in shirt sorter and all social activities. E. Wear the long elastic stockings (STEPHANIA hose) 20 hours a day for 2 weeks after surgery. They can be removed several times a day for laundering and for a bath. F. You may shower, no tub baths until cleared by your doctor. SPECIAL CARE INSTRUCTIONS: VERY IMPORTANT TO READ AND REVIEW A. There are a few signs you need to watch for after you are home. Call [facility] if you notice any of the followin. Increased severe knee pain. Some pain is expected especially when you exercise. 2. Increased swelling in your leg or knee; pain or swelling of the calf muscle in either lower leg. 3. Any fluid drainage from the incision. 4. Shortness of breath or chest pain. B. Please call [facility] at if you have any concerns or questions about your operation or recovery. The doctor or his nurse will return your call promptly. C. You must take antibiotics before dental work, bladder, bowel or other surgery. Your doctor will provide you with a permanent care to carry describing this precaution. IMPORTANT: * REMEMBER TO TAKE ASPIRIN, 81 MG, TWICE DAILY FOR 4 WEEKS UNLESS OTHERWISE DIRECTED. THIS IS YOUR BLOOD THINNER. * HIGH RISK PATIENTS MAY BE PRESCRIBED A STRONGER BLOOD THINNER. THIS WILL BE PROVIDED AT DISCHARGE. * CALL IF INCREASED PAIN, REDNESS, DRAINAGE OR FEVER GREATER THAT 101. * WEAR STEPHANIA HOSE 20 HOURS PER DAY FOR 2 WEEKS. * DERMABOND Prineo- This is a mesh tape dressing that is covered with glue. It should remain in place until the incision is properly healed, usually 10-14 days. This dressing is designed to naturally slough off. You may trim the excess mesh tape as it peels off. Incision may be briefly wet in a shower. Dry immediately by blotting with a clean, dry towel. Do not bath or swim until instructed by your doctor. Do not scratch, rub, or pick at the dressing. Do not apply any topical ointments or lotions until dressing is completely removed and/or instructed by your doctor. There may be a small piece of suture material at one end of your incision. Do not pull or trim this. If it is bothersome or catching on clothing, you may cover it with a band-aid. IF INCISION IS LEAKING THROUGH DRESSING, CALL THE OFFICE . FOLLOW UP VISIT: If appointment is not already scheduled: Please call [facility] to make a follow-up appointment for 2 weeks after your surgery at . Pending Studies at Discharge: No Stand-Alone Forms: [facility], Smoking Cessation Medications and DC Order Prescriptions: New celecoxib [Celebrex] 200 mg Capsule 200 mg PO BID 30 Days Qty: 60 RF: 0 hydrocodone-acetaminophen [[place]] 5-325 mg Tablet 1 tab PO Q4 PRN (Reason: pain) 5 Days Qty: 30 RF: 0 aspirin 81 mg Tablet,Delayed Release (Dr/Ec) 81 mg PO BID 30 Days Qty: 60 RF: 0 docusate sodium 100 mg Capsule 100 mg PO BID 10 Days Qty: 20 RF: 0 cefadroxil 500 mg capsule 500 mg PO BID 7 Days Qty: 14 RF: 0 Continued Citrucel 500 mg Tablet 500 mg PO QAM RF: 0 cholecalciferol (vitamin D3) [Vitamin D3] 50 mcg (2,000 unit) Tablet 50 mcg PO QAM RF: 0 fluorometholone [FML Liquifilm] 0.1 % Drops,Suspension 1 drp QID RF: 0 Discontinued turmeric root extract 500 mg Capsule 500 mg PO QAM RF: 0 omega 3,6,9 combination no.7 92 mg (43 mg-22 [id number]) Tablet,Chewable 1 mg PO QAM RF: 0 Glucosamine Chondroitin 550-30-1 mg Capsule 1 cap PO QAM RF: 0 Discharge Orders: Discharge Order (Routine); Ordered 07/26/20 Ordered By: Titi Walden Admission Data Admit Date/Time: 07/24/20 09:10 Attending Provider: William Long Admit Provider: William Long Primary Care Provider: José Antonio Gaspar
== END 2020-07-26 11:10 | disposition home or self-care (01) ==
LOC: ASU 05:02 → 3E 05:02